=== PATIENT | female | born 2005 | race Caucasian/White ===

== ENCOUNTER 2024-09-16 13:57 | Emergency (ER) | payer OTHER, SELFPAY ==
[2024-09-16 14:07] VITALS: BP 146/87
[2024-09-16 14:39] LABS: ALT (SGPT) 20 U/L (0-35); AST (SGOT) 24 U/L (14-36); Albumin 5.1 g/dl (3.5-5.0); Alkaline Phosphatase 63 U/L (38-126); Blood Urea Nitrogen 29 mg/dl (7-17); Calcium 9.5 mg/dl (8.4-10.2); Carbon Dioxide 21 mmol/L (22-30); Chloride 110 mmol/L (98-107); Glucose 112 mg/dl (70-99); Potassium 5.4 mmol/L (3.5-5.1); Sodium 140 mmol/L (135-145); Total Protein 8.5 g/dl (6.3-8.2); eGFR 60.00
--- NOTE | 2024-09-16 16:21 | ED.GENMED ---
History of Present Illness
General
Chief Complaint: Abnormal Lab Value
Source: patient
Exam Limitations: none
Time Seen by Provider: 09/16/24 15:56
Nursing documentation reviewed up to this point in time: agreed with
History of Present Illness
History of Present Illness:
Patient presents ED for evaluation after outpatient blood work revealed elevated potassium level. Patient states that she is currently taking spironolactone for acne, as recommended by her director of loss prevention for the past 2 weeks. Patient denies
dizziness or weakness. Denies chest palpitations. Denies abdominal pain. Denies nausea or vomiting. Denies recent change in diet. Denies previous history of similar symptoms.
Past History
Social History
Tobacco: Non-smoker
Alcohol: None
Drug: None
Review of Systems
Review of Systems
Allergies reviewed?: Yes
Constitutional: Reports no symptoms
Respiratory: Denies trouble breathing
Cardiac: Reports no symptoms; Denies chest pain or palpitations
ABD/GI: Reports no symptoms; Denies abdominal pain, nausea or vomiting
Musculoskeletal: Reports no symptoms
Skin: Reports no symptoms
Neurological: Reports no symptoms; Denies dizzy or weakness
Phy Exam
Physical Exam
Physical Exam:
Physical Exam
General: no apparent distress, not acutely ill. afebrile
Head: nc/at. eomi
Neck: supple. no meningeal signs.
Heart: s1/s2 regular rate and rhythm
Lungs: no acute respiratory distress. clear bilaterally
Abdomen: normal bowel sounds. not tender.
Neuro: alert and oriented x 3. no focal neurological deficits
Skin: no rash
Psychiatric: well kept. interactive and cooperative
Extremities: no edema. no calf tenderness.
Course
Orders/Labs/Results
Orders:
Orders
09/16/24 13:58
Electrocardiogram (*1) Urgent
Reason for Study: Other
Other Reason for Exam: hyperkalemia
EKG- Treatment ONCE
09/16/24 14:18
CMP [Comprehensive Metabolic Panel] Urgent
09/16/24 16:20
Sodium Zirconium Cyclosilicate [Lokelma] 10 gram PO NOW STA
Abnormal Lab Results
09/16/24
14:18
Potassium 5.4 H mmol/L
(3.5-5.1)
Chloride 110 H mmol/L
(98-107)
Carbon Dioxide 21 L mmol/L
(22-30)
BUN 29 H mg/dl
(7-17)
Creatinine 1.3 H mg/dL
(0.6-1.0)
Glucose 112 H mg/dl
(70-99)
Total Protein 8.5 H g/dl
(6.3-8.2)
Albumin 5.1 H g/dl
(3.5-5.0)
09/16/24 14:18
Vital Signs
Initial and Last Documented VS:
Initial Vital Signs
Temp Pulse Resp BP Pulse Ox
98.1 F 88 16 146/87 99
09/16/24 14:07 09/16/24 14:07 09/16/24 14:07 09/16/24 14:07 09/16/24 14:07
Last Documented Vital Signs
Temp Pulse Resp BP Pulse Ox
98.1 F 64 18 106/71 100
09/16/24 14:07 09/16/24 16:42 09/16/24 16:42 09/16/24 16:42 09/16/24 16:42
MDM/Problems Addressed
MDM/Problems Addressed:
Potassium level on repeat blood work in ED discussed with patient and mother. EKG without any acute abnormalities. Patient otherwise remains afebrile, hemodynamically stable, and without any distress. As such, patient will be discharged home with
recommendation to stop taking spironolactone and she will be provided with 1 dose of Lokelma prior to discharge. Advised to follow-up with PCP or her transplant service for repeat blood work in 1 to 2 weeks.
*Pulse Oximetry
SaO2: 99
Oxygen Mode of Delivery: Room air
Patient hypoxic: no
*Critical Care Note
Total Time (30-74mins, 75-104mins- exclusive of procedures): Not Applicable
ED Attending Note
-
Portions of this chart may have been created with voice recognition software.� Occasional wrong word or��sound alike� substitutions may have occurred due to the inherent limitations of voice recognition software.
Discharge Plan
Departure
Patient Disposition: Home (Routine Discharge)
Date of Disposition: 09/16/24
Time of Disposition: 16:21
Patient with high blood pressure during this ER visit?: Yes
Discharge Problem:
Hyperkalemia
Instructions: Hyperkalemia (DC)
Prescriptions:
No Action
pravastatin 10 MG tablet
10 mg PO QPM
losartan 25 MG tablet
50 mg PO QPM
tacrolimus 1 MG capsule
1 mg PO QPM
tacrolimus 1 MG capsule
2 mg PO DAILY
sirolimus [Rapamune] 2 MG tablet
2 mg PO DAILY
norgestimate-ethinyl estradiol [Tri-Hannah] 1 EACH tablet
1 ea PO DAILY
dicyclomine 10 MG capsule
10 mg PO QIDPRN PRN (Reason: abdominal pain) Qty: 15 0RF
Activity Restrictions/Additional Instructions:
As discussed, please follow-up with your primary care physician and/or transplant service for reevaluation, including repeat blood work within next 1 to 2 weeks. In the meantime, strongly recommend discontinuation of spironolactone.
Interventions
Interventions:
*Risk Screen - Suicide Last Done: 09/16/24 14:07
*Neglect/Abuse Screening Last Done: 09/16/24 14:07
*ED COVID-19 Vaccine History Last Done: 09/16/24 14:14
*Nursing Disposition Last Done: 09/16/24 16:57
Discharge Date and Time
Discharge Date/Time: 09/16/24 16:57
Print Language: DANISH
[2024-09-16] MEDS: LOKELMA 10 GRAM PO (16:41)
[2024-09-16 16:42] VITALS: BP 106/71
== END 2024-09-16 16:57 | disposition home or self-care (01) ==
LOC: EMR 13:57
PROVIDERS: EMERGENCY PHYSICIAN Emergency Medicine; FAMILY PHYSICIAN Pediatrics
DX: E87.5 Hyperkalemia (principal); R03.0 Elevated blood-pressure reading, without diagnosis of hypertension; L70.9 Acne, unspecified; I42.9 Cardiomyopathy, unspecified; K58.9 Irritable bowel syndrome, unspecified; Z94.1 Heart transplant status; Z88.6 Allergy status to analgesic agent; Z88.5 Allergy status to narcotic agent; Z88.2 Allergy status to sulfonamides; Z88.8 Allergy status to other drugs, medicaments and biological substances
CPT/HCPCS: 99283; 80053; 93005